=== PATIENT | male | born 1990 | race Caucasian/White ===

== ENCOUNTER 2017-06-21 14:39 | Emergency (ER) | payer OTHER ==
[~2017-06-21] VITALS: Ht 182.9 cm; Wt 127.0 kg
[2017-06-21 14:39] VITALS: BP 165/100; PULSE 88; RESP 16; TEMP 98.7; O2SAT 97
[~2017-06-21 14:39] MED LIST: DICL50 PO
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
[2017-06-21] MEDS ORDERED: SODIUM CHLOR 0.9% 1000 ML INJ 1,000 ML IV ONE (17:30)
[2017-06-21] MEDS ORDERED: KETOROLAC TROMETHAMINE 30 MG/ML (IVP) VIAL IV PUSH ONE (17:30)
[2017-06-21] MEDS ORDERED: METOCLOPRAMIDE HCL 10 MG/2 ML VIAL IV PUSH ONE (17:30)
[2017-06-21] MEDS ORDERED: LISI2.5T3 PO (17:46)
[2017-06-21] MEDS ORDERED: ATOR10TA15 PO (17:46)
[2017-06-21] MEDS ORDERED: METF500T PO (17:46)
[2017-06-21] MEDS ORDERED: diphenhydrAMINE HCL 50 MG/ML VIAL IV PUSH ONE (18:15)
--- NOTE | 2017-06-21 18:27 | RADRPT ---
EXAM DATE/TIME: 06/21/2017 17:55 [facility] COMPARISON: No previous studies available for comparison. INDICATIONS : Trauma; patient fell 2 days ago. Patient complains of headache and blurred vision. RADIATION DOSE: 41.51 CTDIvol (mGy) MEDICAL HISTORY : None SURGICAL HISTORY : scalp cyst excision ENCOUNTER: Initial ACUITY: 1 day PAIN SCALE: 6/10 LOCATION: cranial TECHNIQUE: Multiple contiguous axial images were obtained of the head. Using automated exposure control and adj ustment of the mA and/or kV according to patient size, radiation dose was kept as low as reasonably a chievable to obtain optimal diagnostic quality images. DICOM format image data is available electro nically for review and comparison. FINDINGS: CEREBRUM: The ventricles are normal for age. No evidence of midline shift, mass lesion, hemorrhage or acute in farction. No extra-axial fluid collections are seen. POSTERIOR FOSSA: The cerebellum and brainstem are intact. The 4th ventricle is midline. The cerebellopontine angle i s unremarkable. EXTRACRANIAL: The visualized portion of the orbits is intact. SKULL: The calvaria is intact. No evidence of skull fracture. CONCLUSION: Normal examination for a patient of this age. Mj Hopson MD on June 21, 2017 at 18:24 Board Certified Radiologist. This report was verified electronically.
== END 2017-06-21 19:12 | disposition home or self-care (01) ==
LOC: NEPD 14:39
DX: S09.90XA Unspecified injury of head, initial encounter (principal); W22.8XXA Striking against or struck by other objects, initial encounter; V78.4XXA Person boarding or alighting from bus injured in noncollision transport accident, initial encounter; Y92.811 Bus as the place of occurrence of the external cause; Y99.0 Civilian activity done for income or pay; E11.9 Type 2 diabetes mellitus without complications; E78.5 Hyperlipidemia, unspecified; I10 Essential (primary) hypertension
CPT/HCPCS: 70450; 96361; 96374; 96375; 99284; J1200; J1885; J2765; J7030